=== PATIENT | male | born 1970 | race Asian ===

== ENCOUNTER 2016-12-04 11:55 | Emergency (ER) | payer BC, OTHER ==
[2016-12-04 12:09] VITALS: BP 161/101; PULSE 74; TEMP 98.3; BMI 23.6
[2016-12-04] MEDS ORDERED: DIPHTH,PERTUSS(ACELL),TET 0.5 ML DISP.SYRIN IM ONE (12:09)
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
== END 2016-12-04 12:35 | disposition home or self-care (01) ==
LOC: FER 11:55
PROC: 3E0234Z Introduction of Serum, Toxoid and Vaccine into Muscle, Percutaneous Approach (ICD-10-PCS; principal; 2016-12-04)
DX: Z04.3 Encounter for examination and observation following other accident (principal); V19.3XXA Pedal cyclist (driver) (passenger) injured in unspecified nontraffic accident, initial encounter; Y93.89 Activity, other specified; Y92.9 Unspecified place or not applicable; I10 Essential (primary) hypertension; K21.9 Gastro-esophageal reflux disease without esophagitis
CPT/HCPCS: 90715; 99283-25

== ENCOUNTER 2022-02-02 04:37 | Day surgery (SDC) | payer BC, OTHER ==
[2022-01-31 12:11] VITALS: BMI 24.5
[2022-02-02] MEDS ORDERED: LIDOCAINE HCL 2% JELLY 10 ML CARTRIDGE ONE (09:51)
[2022-02-02] MEDS ORDERED: LIDOCAINE HCL 2% JELLY 10 ML CARTRIDGE TP ONE (10:00)
[2022-02-02 10:16] VITALS: TEMP 98
[2022-02-02 10:42] VITALS: BP 125/68; PULSE 75
== END 2022-02-02 11:03 | disposition home or self-care (01) ==
LOC: JASU-ENDO 04:37
PROVIDERS: ATTEND Internal Medicine Gastroenterology
PROC: 06LY7CC Occlusion of Hemorrhoidal Plexus with Extraluminal Device, Via Natural or Artificial Opening (ICD-10-PCS; 2022-02-02)
PROC: 0DJD8ZZ Inspection of Lower Intestinal Tract, Via Natural or Artificial Opening Endoscopic (ICD-10-PCS; principal; 2022-02-02 09:30)
DX: K62.5 Hemorrhage of anus and rectum (principal); K64.8 Other hemorrhoids; I10 Essential (primary) hypertension

== ENCOUNTER 2024-07-20 10:27 | Emergency (ER) | payer OTHER, BC ==
[2024-07-20 10:41] VITALS: BP 150/75; PULSE 91; RESP 18; TEMP 98.1; BMI 22.4
[2024-07-20] MEDS ORDERED: IBUPROFEN 600 MG TABLET (FP) PO ONE (11:56)
[2024-07-20] MEDS ORDERED: ACETAMINOPHEN 500 MG TABLET (FP) ONE (11:56)
[2024-07-20] MEDS: ACETAMINOPHEN 500 MG TABLET (FP) PO ONE (11:58)
[2024-07-20] MEDS: IBUPROFEN 600 MG TABLET (FP) PO ONE (11:58)
== END 2024-07-20 12:20 | disposition home or self-care (01) ==
LOC: JERFT 10:27
PROC: 0H9FXZZ Drainage of Right Hand Skin, External Approach (ICD-10-PCS; principal; 2024-07-20)
DX: L03.011 Cellulitis of right finger (principal)
CPT/HCPCS: 99283-25